=== PATIENT | male | born 1970 | race Caucasian/White ===

== ENCOUNTER 2017-01-06 23:30 | Emergency (ER) | payer MEDICAID ==
[~2017-01-06] VITALS: Ht 177.8 cm; Wt 68.0 kg
--- NOTE | 2017-01-07 01:05 | NUR ---
PT AMBULATORY TO ER BED 9 PT STATES HE IS HERE FOR A REFILL OF HIS LASIX. PT AOX4 RR EVEN AND UNLABORED. NO SOB NOTED. NAD NOTED. NO NVD AT THIS TIME. PT NOT DIAPHORETIC. PT WAITING FOR MD HILLMAN.
--- NOTE | 2017-01-07 01:18 | NUR ---
DR. DWYER AT BEDSIDE FOR EVAL.
--- NOTE | 2017-01-07 01:27 | NUR ---
PT AGREED TO BLOOD DRAW.
[2017-01-07 01:58] LABS: CALCIUM, SERUM 8.4 mg/dL (8.5-10.1); CREATININE 1.2 mg/dL (0.6-1.3); POTASSIUM 3.8 mmol/L (3.5-5.1)
[2017-01-07 03:00] VITALS: BP 135/60
== END 2017-01-07 03:01 | disposition home or self-care (01) ==
LOC: ER 23:35
DX: Z76.0 Encounter for issue of repeat prescription (principal); I50.9 Heart failure, unspecified
CPT/HCPCS: 36415; 80048; 99283; A4606; Z7610